=== PATIENT | female | born 1935 | race Caucasian/White ===

== ENCOUNTER 2018-11-16 05:36 | Day surgery (SDC) | payer OTHER ==
[~2018-11-16] VITALS: Ht 170.2 cm; Wt 72.6 kg
[~2018-11-16 05:36] MED LIST: ASPIR 8181 MG PO; CALCIUM 600 +1 EAC1 PO; L-ARGININE500 MG PO; OCUVITE TABLET1 EAC1 PO; PROPAFENONE 15150 MG PO; PROTONIX40 M1 PO; VITAMIN C WIT1000 MG PO
[2018-11-16 07:59] VITALS: BP 157/70
--- NOTE | 2018-11-20 06:13 | O ---
[facility] [place] [address] OPERATIVE REPORT Name: JENNIFFER CHANG Room #: DEP [facility].#: [id number] Admission: 11/16/18 Attend Phys: Oswaldo Zuniga MD Discharge: 11/16/18 Date of : 37 Report #: [id number] THIS REPORT FOR: //name// CC: Dr. Scott Zuniga PREOPERATIVE DIAGNOSIS: Basal cell carcinoma of the right upper lid. POSTOPERATIVE DIAGNOSIS: Basal cell carcinoma of the right upper lid. PROCEDURES: Excision of basal cell carcinoma of the right upper lid lateral canthus with frozen sections and myocutaneous flap repair of defect. SURGEON: Oswaldo Zuniga MD. CUTTER OPERATOR ASBESTOS SHINGLE: None. ANESTHESIA: MAC. COMPLICATIONS: None. INDICATIONS FOR SURGERY: This pleasant 83-year-old woman has a biopsy-proven basal cell carcinoma in her central and lateral right upper lid. She presents today for excision of this lesion with frozen sections and subsequent repair of that defect. Informed consent was obtained to include but not limited to the potential risk for loss of vision, bleeding, infection, failure to improve the problem, the potential need for further surgery or treatment. DESCRIPTION OF PROCEDURE: The patient was taken to the operating room where 2% Xylocaine with epinephrine mixed with equal parts of 0.75% Marcaine with Wydase was administered transcutaneously and transconjunctivally to the right upper lid, the right lateral canthus and the right infratemporal fossa. The patient was subsequently prepped and draped in the usual sterile fashion. A fine tip skin marking pen was then utilized to outline the lesion in a pentagonal fashion. The incisions were then made perpendicularly across the eyelid margin and then drawn to a point at the arcus marginalis superiorly. Hemostasis was achieved in the field with minimal use of diligent pinpoint monopolar cautery. The specimen was then oriented on a drawing for the waiting pathologist. Looking at the specimen, there still appeared to be a nodular in the lateral aspect of the skin superficially. Because of this, an additional lateral margin was taken with the initial resection, which took away the lateral canthus. The specimens were oriented on a drawing for the waiting pathologist. The pathologist snap froze those tissues and found that the margins were indeed now clear. [address] [address] OPERATIVE REPORT Name: JENNIFFER CHANG Alida Room #: DEP [facility]..#: [id number] Admission: 11/16/18 Attend Phys: Oswaldo Zuniga MD Discharge: 11/16/18 Date of : 37 Report #: [id number] A myocutaneous flap was then developed laterally to correct the defect. Hemostasis was then re-achieved. The flap was then advanced and secured with interrupted buried 6-0 Vicryl sutures deep. The lateral canthal angle was reformed with interrupted 6-0 Vicryl sutures. The eyelid margin was closed with 6-0 plain gut sutures superficially and then 7-0 Vicryl sutures right at the lash line. The wounds were then cleaned and dressed with erythromycin ointment. The patient subsequently transported to the recovery area having tolerated the procedure well with no anesthetic or operative complications being noted. <ELECTRONICALLY SIGNED> By: Oswaldo Zuniga MD 11/20/18 0613 [id number] [id number] Oswaldo Zuniga MD /nt
--- NOTE | 2018-11-20 16:06 | PATH ---
[facility] [address] [place] [address] PATHOLOGY RPT PROCEDURE Name: JENNIFFER CHANG Room #: DEP [facility].#: [id number] Admission: 11/16/18 Date of : 37 Discharge: 11/16/18 Report #: [id number] Path Case #: [id number] [facility] Accession Number: [id number] . 01 Material submitted: . eye - RIGHT UPPER LID BASAL CELL CARINOMA. Modifiers: right, upper . 02 Frozen section diagnosis: . FROZEN SECTION DIAGNOSIS (Ag Hernández MD) . Right upper lid basal cell carcinoma: - Basal cell carcinoma. Margins of excision negative. . Findings relayed to Dr. Zuniga at the time of the procedure. . Frozen section performed at [facility], [address] [place] [address] [place] [address]. . . GROSS DESCRIPTION Specimen received fresh and it is labeled, "right upper lid basal cell carcinoma", and it consists of two parts. The first part is the main portion of the specimen and it consists of a roughly rectangular, 1.5 x 0.6 x 0.6 cm piece of pink-trent skin. The specimen orientation has been provided on a piece of cardboard by Dr. Zuniga. The inferior aspect of the specimen contains eyelash hairs. This portion of the specimen is inked as follows: Superior margin - red, lateral margin - blue, and medial margin - green. Note that the inferior aspect of the specimen is not a true margin. A possible slightly raised lesion is seen on the skin surface near the lateral margin of the main portion of the specimen. . Also received with the specimen is a separate 1 x 0.5 x 0.5 cm strip of pink-trent skin which represents the true lateral margin. This true lateral margin portion of the specimen is all frozen on block A1 with the true margin section first on the cryostat. The main portion of the specimen is serially sectioned parallel to the medial/lateral axis and all frozen in block A2. The frozen remnants are submitted in A1 and A2. (NADIAM:omayra; 11/16/2018) . LANG/BEATRIS . 02 Diagnosis: Skin, right upper lid basal cell carcinoma, excision: - BASAL CELL CARCINOMA. - Margins of resection free of malignancy (including margins on the main specimen and the "true lateral margin"). (IUV/db; 11/20/2018) [address] [address] PATHOLOGY RPT PROCEDURE Name: JENNIFFER CHANG Room #: DEP [facility] M.R.#: [id number] Admission: 11/16/18 Date of : 37 Discharge: 11/16/18 Report #: [id number] Path Case #: [id number] LBQ 11/20/2018 1238 Local . 02 Electronically signed: . Terri Mccartney MD, Pathologist NPI- [id number] . 01 Gross description: . PLEASE SEE GROSS DICTATION DICTATED BY PATHOLOGIST UNDER FROZEN SECTION HEADING. /QMS 11/20/2018 0813 Local . 02 Pathologist provided ICD-10: C44.1221 . 02 CPT . 092760, [id number] Specimen Comment: A courtesy copy of this report has been sent to Specimen Comment: [phone], . Specimen Comment: Report sent to / DR YOST Performed at: 01 [facility] [address], [place], [place] [id number] MD Estevan Underwood MD Phone: [phone] Performed at: [address] [facility] [id number] MD Terri Mccartney MD Phone: [phone]
== END 2018-11-16 09:15 | disposition home or self-care (01) ==
LOC: OR 05:36 → TBA 05:38 → OR 09:15
DX: C44.1121 Basal cell carcinoma of skin of right upper eyelid, including canthus (principal); M19.90 Unspecified osteoarthritis, unspecified site; I48.0 Paroxysmal atrial fibrillation; Z86.73 Personal history of transient ischemic attack (TIA), and cerebral infarction without residual deficits; Z87.891 Personal history of nicotine dependence; Z96.612 Presence of left artificial shoulder joint; Z96.652 Presence of left artificial knee joint; Z90.711 Acquired absence of uterus with remaining cervical stump; Z98.41 Cataract extraction status, right eye; Z98.42 Cataract extraction status, left eye; Z90.49 Acquired absence of other specified parts of digestive tract; Z98.890 Other specified postprocedural states; Z79.01 Long term (current) use of anticoagulants; Z79.899 Other long term (current) drug therapy; Z88.8 Allergy status to other drugs, medicaments and biological substances; Z79.82 Long term (current) use of aspirin
CPT/HCPCS: 50010; 50101; 50386; 50398; 51636; 56528; 56531; 62110; 62850; 70005